=== PATIENT | female | born 1980 | race Caucasian/White ===

== ENCOUNTER → 2017-03-24 | Outpatient (CLI) | payer OTHER ==
--- NOTE | 2017-03-24 15:36 | DIAGNOSTIC IMAGING REPORT ---
PET/CT HEAD AND NECK PROTOCOL CLINICAL HISTORY: Left eye choroidal melanoma. TECHNIQUE: A PET/CT was performed from the skull base through the upper thighs following intravenous injection of 13.65 mCi of F 18 FDG IV. The injection was performed at 7:13 AM on March 24, 2017 and imaging began at 8:29 AM on April 03, 2017. Unenhanced CT was performed for attenuation correction purposes and anatomic localization. COMPARISON STUDY: None. FINDINGS: Head and neck: There is slight asymmetric thickening of the posterior aspect of the left globe within the expected region of the retina/choroid. There is no associated asymmetric FDG uptake although these findings are suboptimally assessed by PET/CT. There is no cervical lymphadenopathy. Unenhanced images of the brain are unremarkable. Chest: No abnormal FDG uptake is identified within the chest. There is no thoracic lymphadenopathy. Lungs are suboptimally assessed due to respiratory motion but there are no suspicious pulmonary nodules. Linear and ground glass opacities likely reflect atelectasis. Abdomen and Pelvis: No suspicious FDG uptake is identified within the abdomen or the pelvis. Of note, there are no areas of abnormal FDG uptake within the liver. No abdominal or pelvic lymphadenopathy is present. An intrauterine device is in place. There is a 4.2 cm water attenuation right adnexal lesion without FDG uptake. This likely reflects a right ovarian cyst. Musculoskeletal: No suspicious skeletal uptake is identified. IMPRESSION: 1. No evidence of metastatic disease. 2. Slight asymmetric thickening of the posterior aspect of the left globe within the region of the retina/choroid. No associated radiotracer uptake. These findings are suboptimally assessed by PET/CT but could reflect post treatment change or the primary lesion. 3. 4.2 cm suspected right ovarian cyst. A follow-up pelvic ultrasound in 6 weeks to ensure resolution is recommended. Electronically signed by: Tony Thapa M.D. 03/24/2017 3:34 PM Dictated Date/Time: 03/24/2017 10:49 AM
== END | disposition home or self-care (01) ==
LOC: C.PET 06:57
PROVIDERS: ATTEND Internal Medicine Hematology
DX: C69.32 Malignant neoplasm of left choroid (principal)

== ENCOUNTER → 2017-04-30 | Outpatient (CLI) | payer OTHER ==
--- NOTE | 2017-04-30 07:53 | DIAGNOSTIC IMAGING REPORT ---
EXTREMITY NONVASCULAR LIMITED HISTORY:36 yearsFemaleHX OCULAR MELANOMA COMPARISON: PET CT 03/24/2017 TECHNIQUE: Multiple real-time sonographic images of the lateral inguinal regions were obtained assessing grayscale appearance and color flow. FINDINGS: Within the right groin there are several reniform-shaped centrally echogenic and peripherally hypoechoic lymph nodes which demonstrate a normal thin appearing cortex, largest of which measures 1.7 x 0.5 cm. Normal flow is seen within the vascular abisai. Approximately 3 lymph nodes are visualized on the right. On comparison PET CT dated 03/24/2017, right inguinal nodes are seen measuring up to 6 x 8 mm. Within the left groin there are also several normal-appearing lymph nodes seen with thin hypoechoic cortex and central echogenic fatty hilum, largest of which measures 0.6 x 1.3 x 0.5 cm. On comparison PET CT dated 03/24/2017, left inguinal lymph nodes are seen measuring up to 9 x 5 mm. The remainder of the soft tissues imaged appear to be within normal limits. IMPRESSION: Several mildly prominent non-enlarged morphologically normal-appearing lymph nodes of the bilateral inguinal regions are identified as above. These do however appear to be slightly increased in size from comparison PET/CT dated 03/24/2017 considering difference in modality. The above report was generated using voice recognition software. It may contain grammatical, syntax or spelling errors. Electronically signed by: Robert Burnett M.D. 04/30/2017 7:51 AM Dictated Date/Time: 04/30/2017 7:39 AM
== END | disposition home or self-care (01) ==
LOC: C.ULTR 06:45
PROVIDERS: ATTEND Dermatology
DX: D03.8 Melanoma in situ of other sites (principal); R59.0 Localized enlarged lymph nodes

== ENCOUNTER → 2018-02-20 | Outpatient (CLI) | payer OTHER ==
--- NOTE | 2018-02-20 14:21 | MAMMOGRAPHY REPORT ---
BILATERAL DIGITAL DIAGNOSTIC MAMMOGRAM TOMOSYNTHESIS WITH CAD AND TARGETED BILATERAL ULTRASOUND: 2017 CLINICAL HISTORY: The patient reports her doctor expressed clear nipple discharge bilaterally during a clinical exam. The patient has had no episodes of nipple discharge prior to this. She denies any bloody nipple discharge, palpable lumps, or other complaints. She has a history of ocular melanoma. TECHNIQUE: Breast tomosynthesis in addition to standard 2D mammography was performed. Current study was also evaluated with a Computer Aided Detection (CAD) system. Bilateral CC and MLO 2D and tomosyn thesis images were obtained. COMPARISON: No prior exams were available for comparison. BREAST COMPOSITION: The tissue of both breasts is heterogeneously dense, which may obscure small mas ses. FINDINGS: There are no suspicious masses, calcifications, or areas of architectural distortion noted in either breast mammographically. Targeted ultrasound was performed of bilateral subareolar regions to evaluate for a possible intraduc fan mass. In the left 9:00 subareolar breast, there is a round circumscribed hypoechoic benign-appea ring 5 x 4 x 5 mm mass. The mass is indeterminate and may represent a fibroadenoma or less likely a papilloma. The mass is indeterminate and ultrasound-guided core needle biopsy is recommended for fur ther evaluation. The remainder of both subareolar regions demonstrates no suspicious masses or other suspicious sonographic abnormalities. No intraductal masses are seen. IMPRESSION: ACR BI-RADS CATEGORY 4: SUSPICIOUS, TARGETED ULTRASOUND ACR BI-RADS CATEGORY 4: SUSPICIO US Circumscribed 5 mm mass in the left 9:00 subareolar breast. While this may represent a fibroadenoma, it is indeterminate and ultrasound-guided core needle biopsy is recommended for further evaluation. No intraductal masses or other clear etiology for bilateral nonspontaneous nipple discharge evident. Recommend clinical follow-up for nipple discharge. A phone call was made to the physician's office to confirm faxed results were received. The patient has been verbally notified of the results. She tentatively scheduled the biopsy before leaving the [facility]. Approximately 10% of breast cancers are not detected with mammography. A negative mammographic report should not delay biopsy if a clinically suggestive mass is present. Caitlin Ordonez M.D. /:02/20/2018 11:51:50 Barrel Polisher Inside: Toshia PROCTOR)(Carolyn), [facility] letter sent: Abnormal 01/22 BI-RADS Code: ACR BI-RADS Category 4: Suspicious Ultrasound BI-RADS: ACR BI-RADS Category 4: Suspici ous
== END | disposition home or self-care (01) ==
LOC: C.MAMM 09:14
PROVIDERS: ATTEND Physician Assistant Medical
DX: N64.52 Nipple discharge (principal); N63.20 Unspecified lump in the left breast, unspecified quadrant

== ENCOUNTER → 2018-03-06 | Outpatient (CLI) | payer OTHER ==
--- NOTE | 2018-03-06 09:35 | Discharge Instructions ---
Discharge Instructions Procedure Procedure Date: March 06, 2018. Reason for visit: Left Mass. Discharge Discharge Date: March 06, 2018. Discharge Diagnosis: status post breast biopsy Instructions Activity Recommendations: Additional Limitations (see below) Return to School/Work: no limitations Recommended Home Diet: No Limitations Provider Instructions: ACTIVITY RECOMMENDATIONS: * No lifting, pushing, pulling or exercising the affected side for three days. RETURN TO SCHOOL/WORK: * You may return to work/school after the procedure, but do not perform any strenuous activities for 24 to 48 hours. MEDICATIONS: * Tylenol (two 325 mg) every four to six hours if needed for mild pain (if not allergic to Tylenol). DIET: * Resume previous diet. SPECIAL CARE INSTRUCTIONS: * Keep biopsy site dry for 24 hours. May shower after 24 hours, but do not soak (bathe) incision. * May remove Tegaderm (plastic patch) tomorrow AFTER showering. * Leave the steri-strips on for one week. Allow the steri-strips to fall off by themselves. If not off after one week, you may remove them. You may place a Bandaid crosswise over the strips, if desired. * Apply ice 10 minutes on and 10 minutes off as needed. * Wear a bra at bedtime to sleep more comfortably for 2-3 days. * Your referring physician should have the results after approximately 5 to 7 business days. * Call for unusual bleeding, fever, drainage, etc or if you have any questions call during normal business hours or after hours call Dr Ordonez, . FOLLOW UP VISIT: Follow-up with Referring Physician as scheduled. Edwina Metzger Recommendations: Call your doctor if: * Temperature above 101 degrees * Pain not relieved by pain medicine ordered * There is increased drainage or redness from any incision * You have any unanswered questions or concerns. Your Doctors Instructions noted above were prepared by provider Caitlin Ordonez. Patient Signature Section: Patient Instructions Signature Page Ana Luisa Pachecos Patient (or Guardian) Signature/Date: I have read and understand the instructions given to me by my caregivers. Caregiver/RN/Doctor Signature/Date: The above-named patient and/or guardian has received patient instructions on this date. + Original Patient Signature Page (only) stays with chart. Please make copy for patient.
--- NOTE | 2018-03-06 15:13 | MAMMOGRAPHY REPORT ---
ULTRASOUND GUIDED BIOPSY LEFT BREAST: 03/06/2018 CLINICAL HISTORY: Left 9:00 subareolar breast mass. PATIENT CONSENT: The procedure, risks and benefits were discussed with the patient and informed writt en consent was obtained. A timeout was performed immediately prior to the procedure. PROCEDURE DESCRIPTION: With ultrasound guidance, aseptic technique, and lidocaine as the local anesth etic (1% lidocaine to anesthetize the skin and 1% lidocaine with epinephrine to anesthetize the deepe r tissues), the mass of concern in the left 9:00 subareolar breast was sampled 5 times with a 14-gaug e Achieve biopsy needle. Immediately thereafter, with ultrasound guidance, aseptic technique, and li docaine as the local anesthetic, a metallic localizer clip was placed centrally in the mass. Direct pressure was applied to the site immediately post procedure and hemostasis was achieved. Postprocedu re unilateral mammograms were performed to confirm clip placement. The patient tolerated the procedu re without complication. She was given wound care instructions. The specimens were sent to pathology for analysis. COMPARISON: Comparison is made to exams dated: 02/20/2018 ultrasound and 02/20/2018 mammogram - [facility]. IMPRESSION: ULTRASOUND GUIDED BIOPSY Ultrasound-guided core needle biopsy of the left 9:00 subareolar breast mass, with clip placement. T he patient will receive pathology results from her referring provider. Caitlin Ordonez M.D. /:03/06/2018 09:44:29 Seater Grinder: Corazon Mo, [facility]
--- NOTE | 2018-03-06 15:15 | MAMMOGRAPHY REPORT ---
UNILATERAL LEFT DIGITAL DIAGNOSTIC MAMMOGRAM TOMOSYNTHESIS: 03/06/2018 CLINICAL HISTORY: Status post left breast biopsy. TECHNIQUE: Breast tomosynthesis in addition to standard 2D mammography was performed. Postprocedura l left CC and ML tomosynthesis images were obtained. COMPARISON: Comparison is made to exams dated: 03/06/2018 ultrasound biopsy, 02/20/2018 ultrasound, and 02/20/2018 mammogram - [facility]. BREAST COMPOSITION: The tissue of the left breast is heterogeneously dense, which may obscure small masses. FINDINGS: A new ribbon-shaped biopsy marker clip is seen at the site of the biopsied mass in the lef t 9:00 breast. No significant postbiopsy hematoma is seen. IMPRESSION: POST PROCEDURE IMAGING FOR MARKER PLACEMENT New biopsy marker clip status post left breast biopsy. Pathology results are pending. Approximately 10% of breast cancers are not detected with mammography. A negative mammographic report should not delay biopsy if a clinically suggestive mass is present. Caitlin Ordonez M.D. ah/:03/06/2018 09:45:25 Pneumatic Drum Sander: Corazon Mo, [facility] BI-RADS Code: Post Procedure Imaging For Marker Placement
== END | disposition home or self-care (01) ==
LOC: C.MAMM 08:53
PROVIDERS: ATTEND Physician Assistant Medical
DX: N63.42 Unspecified lump in left breast, subareolar (principal)